=== PATIENT | female | born 1950 ===

== ENCOUNTER 2019-08-21 17:23 | Emergency (ER) | payer SELFPAY ==
[2019-08-21] MEDS ORDERED: Sodium Chloride 0.9% 10 ML Syringe FLUSH PRN (17:39)
[2019-08-21] MEDS ORDERED: Sodium Chloride 0.9% 2.5 ML Syringe FLUSH PRN (17:39)
== END 2019-08-21 19:37 | disposition left against medical advice (07) ==
LOC: MW.ED 17:23
DX: Z53.21 Procedure and treatment not carried out due to patient leaving prior to being seen by health care provider (principal)